=== PATIENT | female | born 1955 | race Caucasian/White ===

== ENCOUNTER 2019-09-07 21:16 | Emergency (ER) | payer MEDICAID ==
--- NOTE | 2019-09-07 22:20 | EDM.PDOC ---
ED HPI GENERAL MEDICAL PROBLEM - General Chief Complaint: Upper Extremity Injury/Pain Stated Complaint: FELL AT HOME Time Seen by Provider: 09/07/19 22:11 Source of Information: Reports: Patient History Limitations: Reports: No Limitations - History of Present Illness INITIAL COMMENTS - FREE TEXT/NARRATIVE: pt fell on a slippery floor. She landed on the rt knee and injured the toe nail on the 4th toe. Onset: Today, Sudden Duration: Hour(s): Location: Reports: Upper Extremity, Left, Lower Extremity, Right Associated Symptoms: Reports: No Other Symptoms Left Shoulder Pain Score (Numeric/FACES): 8 - Related Data Allergies Allergy/AdvReac Type Severity Reaction Status Date / Time No Known Allergies Allergy Verified 09/07/19 22:10 Home Meds: Home Meds Aspirin [Halfprin] 81 mg PO DAILY 02/05/18 [History] Calcium Carbonate 600 mg PO BEDTIME 02/05/18 [History] Cholecalciferol (Vitamin D3) [Vitamin D3] 2,000 units PO DAILY 02/05/18 [History ] Fish Oil/DHA/EPA [Fish Oil 1,200 MG] 1 each PO BID 02/05/18 [History] Simvastatin [Zocor] 80 mg PO BEDTIME 02/05/18 [History] gemfibroziL [Lopid] 600 mg PO BIDAC 02/05/18 [History] Antiox #11/OM3/DHA/EPA/Lut/Joya [Eye Health Adult 50+ Softgel] 1 each PO BEDTIME 02/06/18 [History] Multivit-Min/Iron/Folic/Lutein [Centrum Silver Women Tablet] 1 each PO DAILY [History] Past Medical History HEENT History: Reports: None Cardiovascular History: Reports: High Cholesterol Respiratory History: Reports: None Gastrointestinal History: Reports: GERD Genitourinary History: Reports: None [employer] History: Reports: Musculoskeletal History: Reports: Fracture Other Musculoskeletal History: left arm Neurological History: Reports: None Psychiatric History: Reports: None Endocrine/Metabolic History: Reports: None Hematologic History: Reports: None Immunologic History: Reports: None Oncologic (Cancer) History: Reports: None Dermatologic History: Reports: None - Infectious Disease History Infectious Disease History: Reports: Chicken Pox, Measles - Past Surgical History Cardiovascular Surgical History: Reports: None GI Surgical History: Reports: Colonoscopy Female Surgical History: Reports: None, Tubal Ligation Social & Family History - Family History Family Medical History: Noncontributory - Tobacco Use Smoking Status *Q: Never Smoker - Caffeine Use Caffeine Use: Reports: Tea - Recreational Drug Use Recreational Drug Use: No Review of Systems - Review of Systems Review Of Systems: See Below Constitutional: Reports: No Symptoms Eyes: Reports: No Symptoms Ears: Reports: No Symptoms Nose: Reports: No Symptoms Mouth/Throat: Reports: No Symptoms Respiratory: Reports: No Symptoms Cardiovascular: Reports: No Symptoms Musculoskeletal: Reports: Other (pain in her rt knee and her rt 4th toe. also her left upper arm. ) Skin: Reports: No Symptoms Neurological: Reports: No Symptoms Psychiatric: Reports: No Symptoms ED EXAM, GENERAL - Physical Exam Exam: See Below Free Text/Narrative:: pt fell on the ceramic tile and landed on her rt knee and her rt 4th toe was injured. She also is having pain her left upper arm with movement. Exam Limited By: No Limitations General Appearance: Alert, Anxious, Other (pt did not hit her head. ) Ears: Normal TMs Nose: Normal Inspection Throat/Mouth: Normal Inspection Head: Atraumatic Neck: Normal Inspection Respiratory/Chest: No Respiratory Distress Cardiovascular: Regular Rate, Rhythm GI/Abdominal: Soft, Non-Tender Extremities: Other (pt landed directly on the rt knee cap and the rt knee is painful. Her rt upper arm is tender in the muscle. Her 4th lrt toe has injury to the toe nail) Neurological: Alert, Oriented, Normal Cognition Course - Vital Signs Last Recorded V/S: Last Vital Signs Temp 36.3 C 09/07/19 21:56 Pulse 72 09/07/19 23:35 Resp 16 09/07/19 23:35 BP 133/83 09/07/19 23:35 Pulse Ox 97 09/07/19 23:35 - Orders/Labs/Meds Meds: Medications Discontinued Medications Generic Name Dose Route Start Last Admin Trade Name Lillie PRN Reason Stop Dose Admin Bacitracin 1 dose 09/07/19 23:25 09/07/19 23:36 Bacitracin Oint 1 Gm TOP 09/07/19 23:26 1 dose ONETIME ONE Administration - Re-Assessments/Exams Free Text/Narrative Re-Assessment/Exam: 09/07/19 23:40 xray of the left arm--upper and her rt foot and rt knee were neg. Departure - Departure Time of Disposition: 23:34 Disposition: Home, Self-Care 01 Condition: Fair Clinical Impression: Contusion of right knee, Injury of nail bed of toe, Muscle strain of left upper arm - Discharge Information Referrals: PCP,None [Primary Care Provider] - Forms: ED Department Discharge Care Plan Goals: ice packs to the left upper arm and he left knee, motrin 600mg tid for discomfort. no work wed and thur. rtc if problems. soak the left foot and keep the nail covered. Sepsis Event Note - Evaluation Sepsis Screening Result: No Definite Risk - Focused Exam Vital Signs: Vital Signs Temp Pulse Resp BP Pulse Ox 09/07/19 23:35 72 16 133/83 97 09/07/19 21:56 36.3 C 83 16 149/92 H 96 09/07/19 21:47 36.3 C 83 16 149/92 H 96 Date Exam was Performed: 09/07/19 Time Exam was Performed: 23:37
--- NOTE | 2019-09-07 23:07 | CRLCR ---
INDICATION: Fall foot pain in toes TECHNIQUE: Foot radiograph 2 views right COMPARISON: None FINDINGS: Bone: No acute fractures or aggressive bone lesions are identified. Joint: The visualized hindfoot, midfoot, and forefoot joints are unremarkable in appearance. No significant ankle effusion is seen. Soft tissue: Unremarkable. No radiopaque foreign bodies are seen. IMPRESSION: 1. No acute osseous injuries or abnormalities are noted. Dictated by: Andrés Conti MD @ 09/07/2019 23:06:46 (Electronically Signed)
--- NOTE | 2019-09-07 23:09 | CRLCR ---
Indication: Fall, knee pain Technique: Right knee 4 views, 5 films Comparison: None Findings: Bones: Alignment is normal. No fractures or bone lesions. Joint spaces: Joint spaces are well maintained. No degenerative changes. No sign of joint effusion. Soft tissues: Unremarkable. Impression: Unremarkable right knee Dictated by Marko Gray MD @ Sep 07 2019 11:07PM Signed by Dr. Marko Gray @ Sep 07 2019 11:08PM
--- NOTE | 2019-09-07 23:11 | CRLCR ---
Indication: Pain after fall Technique: Two views Comparison: None Findings: Bones: Alignment is normal. No fractures or bone lesions. Joint spaces: Unremarkable. Soft tissues: Unremarkable. Dictated by Marko Gray MD @ Sep 07 2019 11:08PM Signed by Dr. Marko Gray @ Sep 07 2019 11:11PM
[2019-09-07] MEDS ORDERED: Bacitracin Oint 1 GM U/D Packet TOP ONE (23:25)
== END 2019-09-07 23:46 | disposition home or self-care (01) ==
LOC: JP.ED 21:16
DX: S46.912A Strain of unspecified muscle, fascia and tendon at shoulder and upper arm level, left arm, initial encounter (principal); S80.01XA Contusion of right knee, initial encounter; S99.921A Unspecified injury of right foot, initial encounter; E78.00 Pure hypercholesterolemia, unspecified; Z79.82 Long term (current) use of aspirin; Z79.899 Other long term (current) drug therapy; W01.0XXA Fall on same level from slipping, tripping and stumbling without subsequent striking against object, initial encounter
CPT/HCPCS: 73060-LT; 73564-RT; 73620-RT; 99283-25